=== PATIENT | male | born 1980 | race Caucasian/White ===

== ENCOUNTER 2022-03-16 10:00 | Emergency (ER) | payer BC ==
[2022-03-16 10:10] VITALS: TEMP 97
[2022-03-16] MEDS ORDERED: SODIUM CHLORIDE 0.9% 1,000 ML IV STA (11:08)
--- NOTE | 2022-03-16 11:12 | ED ---
Dizziness HPI - General Chief Complaint: Dizziness Stated Complaint: Nausea,Dizziness Time Seen by Provider: 03/16/22 11:02 Source: patient, family, EMS, RN notes reviewed Mode of arrival: EMS Limitations: no limitations - History of Present Illness Initial Comments: Patient is a 41-year-old male presenting to the emergency room via EMS after having a syncopal episode while getting blood drawn at an outpatient facility earlier today. He reports that he has previously had problems with dizziness and syncope with blood draws and always has to be lying down for the blood draws. He reports that he believes that he became very anxious regarding the blood draw when the person driving his blood informed him that she was due to her position and had limited training. He was also fasting for the blood work to be drawn. He states that he was doing well prior to the blood draw. He was feeling clammy with nausea and mild haziness upon initial presentation to EMS however he is slowly returning to baseline. In addition to his anxiety and previous syncopal with blood draws he has a past medical history significant for hypertension and hyperlipidemia. - Related Data Allergies Allergy/AdvReac Type Severity Reaction Status Date / Time bacitracin Allergy Rash/Hives Verified 03/16/22 10:10 [From Neosporin ([id number])] mold Allergy Unknown Verified 03/16/22 10:10 neomycin Allergy Rash/Hives Verified 03/16/22 10:10 [From Neosporin ([id number])] polymyxin B Allergy Rash/Hives Verified 03/16/22 10:10 [From Neosporin ([id number])] Yeast Allergy Unknown Verified 03/16/22 10:10 Review of Systems ROS Statement: Those systems with pertinent positive or pertinent negative responses have been documented in the HPI. ROS Other: All systems not noted in ROS Statement are negative. Past Medical History Past Medical History: Hyperlipidemia, Hypertension History of Any Multi-Drug Resistant Organisms: None Reported Past Surgical History: No Surgical Hx Reported Past Psychological History: PTSD Smoking Status: Never smoker Past Alcohol Use History: None Reported Past Drug Use History: None Reported General Exam Limitations: no limitations General appearance: alert, in no apparent distress Head exam: Present: atraumatic, normocephalic, normal inspection Eye exam: Present: normal appearance, PERRL, EOMI. Absent: scleral icterus, conjunctival injection, nystagmus, periorbital swelling ENT exam: Present: normal exam, mucous membranes moist Neck exam: Present: normal inspection, full ROM Respiratory exam: Present: normal lung sounds bilaterally. Absent: respiratory distress, wheezes, rales, rhonchi, stridor Cardiovascular Exam: Present: regular rate, normal rhythm, normal heart sounds. Absent: systolic murmur, diastolic murmur, rubs, gallop, clicks GI/Abdominal exam: Present: soft, normal bowel sounds. Absent: distended, tenderness, guarding, rebound, rigid Extremities exam: Present: normal inspection. Absent: pedal edema, joint swelling Back exam: Present: normal inspection Neurological exam: Present: alert, oriented X3, CN II-XII intact Psychiatric exam: Present: normal affect, normal mood Skin exam: Present: warm, dry, intact, normal color. Absent: rash Course Vital Signs 03/16/22 03/16/22 10:05 12:22 Temperature 97.0 F L Pulse Rate 62 64 Respiratory 18 14 Rate Blood Pressure 121/92 126/77 O2 Sat by Pulse 97 100 Oximetry Medical Decision Making - Medical Decision Making 42-year-old male presenting to the emergency room after syncopal event during fasting put her earlier today with previous difficulties during blood draws. No trauma to any extremity or head. No indication for diagnostic imaging. Will obtain EKG along with CBC and CMP. Will draw fasting lipid panel to have forwarded to primary care provider as he is having fasting labs drawn today for annual physical later in the week. Will give IV hydration and monitor. EKG sinus rhythm. Mildly elevated WBC of 12.4 without any concern for acute infectious etiology. Fasting glucose 115 will add on A1c for follow-up with his primary care provider. Mental status at baseline upon arrival now much improved feeling after IV fluids, will discharge home in stable condition with follow-up with his primary care provider. Case discussed with Dr. Savage. - Lab Data Result diagrams: 03/16/22 11:15 03/16/22 11:15 Lab Results 03/16/22 03/16/22 03/16/22 Range/Units 11:15 11:15 11:15 WBC 12.4 H (3.8-10.6) k/uL RBC 5.43 (4.30-5.90) m/uL Hgb 16.5 (13.0-17.5) gm/dL Hct 48.3 (39.0-53.0) % MCV 88.9 (80.0-100.0) fL MCH 30.4 (25.0-35.0) pg MCHC 34.2 (31.0-37.0) g/dL RDW 12.9 (11.5-15.5) % Plt Count 226 (150-450) k/uL MPV 8.0 Neutrophils % 75 % Lymphocytes % 17 % Monocytes % 5 % Eosinophils % 1 % Basophils % 0 % Neutrophils # 9.3 H (1.3-7.7) k/uL Lymphocytes # 2.1 (1.0-4.8) k/uL Monocytes # 0.7 (0-1.0) k/uL Eosinophils # 0.1 (0-0.7) k/uL Basophils # 0.1 (0-0.2) k/uL Sodium 142 (137-145) mmol/L Potassium 4.5 (3.5-5.1) mmol/L Chloride 106 (98-107) mmol/L Carbon Dioxide 28 (22-30) mmol/L Anion Gap 8 mmol/L BUN 19 (9-20) mg/dL Creatinine 0.72 (0.66-1.25) mg/dL Est GFR (CKD-EPI)AfAm >90 (>60 ml/min/1.73 sqM) Est GFR (CKD-EPI)NonAf >90 (>60 ml/min/1.73 sqM) Glucose 115 H (74-99) mg/dL Estimated Ave Glu mg/dL 142 Hemoglobin A1c 6.6 H (0.0-6.0) % Calcium 9.5 (8.4-10.2) mg/dL Total Bilirubin 0.8 (0.2-1.3) mg/dL AST 44 (17-59) U/L ALT 65 H (4-49) U/L Alkaline Phosphatase 52 (38-126) U/L Total Protein 7.8 (6.3-8.2) g/dL Albumin 4.8 (3.5-5.0) g/dL Triglycerides 143.00 (0.00-149.00) mg/dL Cholesterol 183.00 (0.00-200.00) mg/dL LDL Cholesterol, Calc 112.7 (0.0-131.0) mg/dL VLDL Cholesterol, Calc 28.60 (5.00-40.00) mg/dL HDL Cholesterol 41.70 (40.00-60.00) mg/dL Cholesterol/HDL Ratio 4.39 Ratio - EKG Data EKG Comments: EKG completed at 1119 interpreted by me sinus rhythm, ventricular rate 65 bpm, MD interval 181 ms, QRS duration 93 ms, QT/QTC 415/427 ms, PRT axes 24, 42, 33 Disposition Clinical Impression: Vasovagal syncope, Fasting hyperglycemia Disposition: HOME SELF-CARE Condition: Stable Instructions (If sedation given, give patient instructions): Syncope (ED), Dizziness (ED) Additional Instructions: Please drink plenty of fluids avoiding caffeinated products. Please follow-up with your primary care provider. Your fasting lipid panel and A1c drawn today is pending and results will be sent to her primary care provider please follow-up with your primary care provider regarding these testings and follow-up care. Please return to the Emergency Department if symptoms worsen or any other concerns. Is patient prescribed a controlled substance at d/c from ED?: No Referrals: Leonid Marroquin MD [Primary Care Provider] - 1-2 days Time of Disposition: 12:30
[2022-03-16 11:59] LABS: Basophils # (A) 0.1 k/uL (0-0.2); Basophils % (A) 0 %; Eosinophils # (A) 0.1 k/uL (0-0.7); Eosinophils % (A) 1 %; HCT 48.3 % (39.0-53.0); HGB 16.5 gm/dL (13.0-17.5); Lymphocytes # (A) 2.1 k/uL (1.0-4.8); Lymphocytes % (A) 17 %; MCH 30.4 pg (25.0-35.0); MCHC 34.2 g/dL (31.0-37.0); MCV 88.9 fL (80.0-100.0); Monocytes # (A) 0.7 k/uL (0-1.0); Monocytes % (A) 5 %; Neutrophils # (A) 9.3 k/uL (1.3-7.7); Neutrophils % (A) 75 %; Platelet Count 226 k/uL (150-450); RBC 5.43 m/uL (4.30-5.90); RDW 12.9 % (11.5-15.5); WBC 12.4 k/uL (3.8-10.6)
[2022-03-16 12:14] LABS: ALT 65 U/L (4-49); AST 44 U/L (17-59); African American GFR (CKD) >90 (>60 ml/min/1.73 sqM); Albumin 4.8 g/dL (3.5-5.0); Alkaline Phosphatase 52 U/L (38-126); Anion Gap 8 mmol/L; Blood Urea Nitrogen 19 mg/dL (9-20); Calcium 9.5 mg/dL (8.4-10.2); Carbon Dioxide 28 mmol/L (22-30); Chloride 106 mmol/L (98-107); Glucose 115 mg/dL (74-99); Non-African American GFR(CKD) >90 (>60 ml/min/1.73 sqM); Potassium 4.5 mmol/L (3.5-5.1); Sodium 142 mmol/L (137-145); Total Bilirubin 0.8 mg/dL (0.2-1.3); Total Protein 7.8 g/dL (6.3-8.2)
[2022-03-16 12:23] VITALS: BP 126/77; PULSE 64; RESP 14
[2022-03-16 16:28] LABS: Chol/HDL Ratio 4.39 Ratio; LDL Cholesterol,Calculated 112.7 mg/dL (0.0-131.0)
== END 2022-03-16 12:47 | disposition home or self-care (01) ==
LOC: EC 10:00
DX: R55 Syncope and collapse (principal); R73.9 Hyperglycemia, unspecified; E78.5 Hyperlipidemia, unspecified; I10 Essential (primary) hypertension; Z88.1 Allergy status to other antibiotic agents; Z91.048 Other nonmedicinal substance allergy status; Z88.8 Allergy status to other drugs, medicaments and biological substances
CPT/HCPCS: 36415; 80053; 80061; 83036; 85025; 93005; 96360; 99284